=== PATIENT | male | born 1950 | race Caucasian/White ===

== ENCOUNTER 2021-10-19 13:27 | Emergency (ER) | payer MEDICARE, SELFPAY ==
[2021-10-19 13:38] VITALS: BP 151/80; PULSE 76; RESP 18; TEMP 36.3; O2SAT 98
--- NOTE | 2021-10-19 13:45 | ED_ITS ---
HPI - Skin/Abscess/Foreign Bdy General Chief complaint: Skin/Abscess/Foreign Body Stated complaint: shingles Time Seen by Provider: 10/19/21 13:38 Source: patient and RN notes reviewed Mode of arrival: ambulatory Limitations: no limitations Related Data Home Medications Medication Instructions Recorded Confirmed finasteride 5 mg PO DAILY 10/19/21 10/19/21 Allergies Allergy/AdvReac Type Severity Reaction Status Date / Time NKDA Allergy Unknown Uncoded 07/03/10 13:29 Course Course Level of Care: Express Care Visit Vital Signs Vital signs: Vital Signs Temperature 97.4 F L 10/19/21 13:38 Pulse Rate 76 10/19/21 13:38 Respiratory Rate 18 10/19/21 13:38 Blood Pressure 151/80 H 10/19/21 13:38 Pulse Oximetry 98 10/19/21 13:38 Temperature 97.4 F L 10/19/21 13:38 Pulse Rate 76 10/19/21 13:38 Respiratory Rate 18 10/19/21 13:38 Blood Pressure 151/80 H 10/19/21 13:38 Pulse Oximetry 98 10/19/21 13:38 Discharge Plan Discharge Clinical Impression: Herpes zoster Qualifiers: Herpes zoster complications: without complications Qualified Code(s): B02.9 - Zoster without complications Patient Disposition: Home, Self-Care Condition: Stable Instructions: Shingles (ED) Additional Instructions: You have been diagnosed with shingles. Please take the Valtrex as prescribed. Take Tylenol or ibuprofen for pain, if able. Follow-up with your PCP in 1 week if symptoms are not improving. Your blood pressure was elevated above 120/80 today at Urgent Care. This puts you above the threshold for follow up. Please schedule a followup visit with your personal physician as soon as possible, for further evaluation and treatment. Even blood pressure exceeding 120/80 may indicate pre-hypertension. Patient Language: [place]itanian Prescriptions: New valacyclovir 1 gram tablet 1,000 mg PO TID 7 Days Qty: 21 RF: 0 No Action finasteride 5 mg tablet 5 mg PO DAILY RF: 0 Follow-up/Referrals: UNKNOWN,DOCTOR [Primary Care Provider] - Time of Disposition: 13:47
== END 2021-10-19 13:52 | disposition home or self-care (01) ==
PROVIDERS: Emergency Provider Nurse Practitioner
DX: B02.9 Zoster without complications (principal)
CPT/HCPCS: 99213; G0463